=== PATIENT | female | born 1990 | race Caucasian/White ===

== ENCOUNTER 2016-09-30 13:05 | Emergency (ER) | payer SELFPAY ==
[~2016-09-30] VITALS: Ht 152.4 cm; Wt 93.2 kg
[2016-09-30 13:09] VITALS: BP 112/74; PULSE 76; TEMP 98.7
[2016-09-30] MEDS ORDERED: AMOXICILLIN875 MG PO (13:50)
== END 2016-09-30 14:09 | disposition home or self-care (01) ==
LOC: COL.ER 13:05
DX: H66.42 Suppurative otitis media, unspecified, left ear (principal); E03.9 Hypothyroidism, unspecified

== ENCOUNTER 2017-07-29 18:15 | Emergency (ER) | payer SELFPAY ==
[~2017-07-29] VITALS: Ht 152.4 cm; Wt 102.1 kg
[~2017-07-29 18:15] MED LIST: AMOXICILLIN875 MG PO
[2017-07-29 18:24] VITALS: BP 108/61
[2017-07-29 19:03] VITALS: TEMP 97
[2017-07-29] MEDS ORDERED: POLYMYXIN B/TRIMETH OU (19:19)
[2017-07-29 19:47] VITALS: PULSE 96
== END 2017-07-29 19:48 | disposition home or self-care (01) ==
LOC: COL.ER 18:15
DX: H10.9 Unspecified conjunctivitis (principal); E03.9 Hypothyroidism, unspecified; F17.210 Nicotine dependence, cigarettes, uncomplicated

== ENCOUNTER 2017-12-15 23:30 | Emergency (ER) | payer SELFPAY ==
[~2017-12-15] VITALS: Ht 152.4 cm; Wt 92.1 kg
[~2017-12-15 23:30] MED LIST changes: +POLYMYXIN B/TRIMETH OU
[2017-12-15 23:39] VITALS: BP 126/85; TEMP 98.4
[2017-12-16 00:35] LABS: HEMATOCRIT 37.3 % (37.0-47.0); MEAN CELL VOLUME 103 fl (80.0-100.0); MEAN CORPUSCULAR HEMOGLOBIN 33 pg (27.0-31.0); MEAN CORPUSCULAR HGB CONC 32 g/dl (33.0-37.0); MEAN PLATELET VOLUME 11.8 fl (7.4-10.4); PLATELET COUNT 203 K/mm3 (130-400); RED BLOOD COUNT 3.63 M/mm3 (4.10-5.30); REDCELL DISTRIBUTION WIDTH-CV 16.3 % (11.5-14.5)
[2017-12-16 00:36] LABS: COLLECTION METHOD CLEAN CATCH
[2017-12-16 00:48] LABS: MUCOUS Present /lpf; PH 6 (5-8); URINE APPEARANCE Hazy; URINE BACTERIA Rare /hpf; URINE BILIRUBIN Negative (NEGATIVE); URINE BLOOD Negative (NEGATIVE); URINE COLOR Yellow; URINE GLUCOSE Negative (NEGATIVE); URINE KETONE Negative (NEGATIVE); URINE LEUKOCYTE ESTERASE Negative (NEGATIVE); URINE NITRATE Negative (NEGATIVE); URINE PROTEIN(semi-quant) Negative (NEGATIVE); URINE RBC 0-2 /hpf
[2017-12-16 00:54] LABS: ALANINE AMINOTRANSFERASE 30 U/L (9-52); ALBUMIN 4.5 gm/dL (3.5-5.0); ALKALINE PHOSPHATASE 36 U/L (50-136); ANION GAP 11 mmol/L (7-16); AST,SGOT 31 U/L (15-37); BLOOD UREA NITROGEN 23 mg/dL (7-17); CALCIUM 9.3 mg/dL (8.4-10.2); CARBON DIOXIDE 31 mmol/L (22-30); CHLORIDE 96 mmol/L (98-107); CREATININE, serum 1.26 mg/dL (0.52-1.25); GLUCOSE 87 mg/dL (74-106); POTASSIUM 3.9 mmol/L (3.4-5.0); SODIUM 138 mmol/L (137-145); TOTAL PROTEIN 8.1 gm/dL (6.4-8.2)
[2017-12-16 01:47] LABS: ANISOCYTOSIS 1+; BAND 6 % (0-10); BASOPHIL 1 % (0-2); EOSINOPHIL 7 % (0-4); HYPOCHROMIA 1+; LYMPHOCYTE 22 % (20.0-51.0); NEUTROPHILS 58 % (42.0-75.2)
[2017-12-16 01:48] LABS: POLYCHROMASIA 1+
[2017-12-16] MEDS ORDERED: LEVOXYL0.15 MG PO (03:14)
[2017-12-16 03:32] VITALS: PULSE 74
[2017-12-16 08:11] LABS: PATHOLOGY DIFF REVIEW OK
== END 2017-12-16 03:32 | disposition home or self-care (01) ==
LOC: COL.ER 23:30
PROVIDERS: Emergency Medicine
DX: K59.00 Constipation, unspecified (principal); E03.9 Hypothyroidism, unspecified; Z98.890 Other specified postprocedural states

== ENCOUNTER 2018-06-23 12:46 | Emergency (ER) | payer SELFPAY ==
[~2018-06-23] VITALS: Ht 152.4 cm; Wt 81.8 kg
[~2018-06-23 12:46] MED LIST changes: +LEVOXYL0.15 MG PO
[2018-06-23 12:57] VITALS: TEMP 98.4
[2018-06-23 13:45] LABS: COLLECTION METHOD CLEAN CATCH
[2018-06-23 14:05] LABS: MUCOUS Present /lpf; PH 6 (5-8); URINE APPEARANCE Hazy; URINE BACTERIA Rare /hpf; URINE BILIRUBIN Negative (NEGATIVE); URINE BLOOD Negative (NEGATIVE); URINE COLOR Yellow; URINE GLUCOSE Negative (NEGATIVE); URINE KETONE Negative (NEGATIVE); URINE LEUKOCYTE ESTERASE Negative (NEGATIVE); URINE NITRATE Negative (NEGATIVE); URINE PROTEIN(semi-quant) Negative (NEGATIVE); URINE RBC 0-2 /hpf
[2018-06-23 14:14] LABS: BASO % 0.5 % (0.0-2.0); EOS # 0.3 (0.0-0.7); EOS % 3.7 % (0-4.0); GRAN # 5.8 (1.4-6.5); GRAN % 67.8 % (42.2-75.2); HEMATOCRIT 37.2 % (37.0-47.0); LYMPH # 1.9 (1.2-3.4); LYMPH % 22.4 % (20.0-51.0); MEAN CELL VOLUME 99 fl (80.0-100.0); MEAN CORPUSCULAR HEMOGLOBIN 32 pg (27.0-31.0); MEAN CORPUSCULAR HGB CONC 32 g/dl (33.0-37.0); MEAN PLATELET VOLUME 11.5 fl (7.4-10.4); MONO # 0.4 (0.1-0.6); MONO % 5.2 % (1.7-9.3); PLATELET COUNT 204 K/mm3 (130-400); RED BLOOD COUNT 3.75 M/mm3 (4.10-5.30); REDCELL DISTRIBUTION WIDTH-CV 17.3 % (11.5-14.5)
[2018-06-23 14:21] LABS: ALANINE AMINOTRANSFERASE 19 U/L (9-52); ALBUMIN 3.9 gm/dL (3.5-5.0); ALKALINE PHOSPHATASE 43 U/L (50-136); ANION GAP 6 mmol/L (7-16); AST,SGOT 33 U/L (15-37); BILIRUBIN,TOTAL 0.4 mg/dL (0.0-1.0); BLOOD UREA NITROGEN 19 mg/dL (7-17); CALCIUM 9.2 mg/dL (8.4-10.2); CARBON DIOXIDE 33 mmol/L (22-30); CHLORIDE 100 mmol/L (98-107); CREATININE, serum 1.05 mg/dL (0.52-1.25); GLUCOSE 69 mg/dL (74-106); LIPASE 201 U/L (23-300); POTASSIUM 3.8 mmol/L (3.4-5.0); SODIUM 139 mmol/L (137-145)
[2018-06-23 14:23] LABS: C-REACTIVE PROTEIN 0.5 mg/dL (0.0-0.9)
[2018-06-23] MEDS ORDERED: SYNTHROID 0.10.15 MG PO (15:14)
[2018-06-23 15:40] VITALS: BP 110/72; PULSE 68
== END 2018-06-23 15:41 | disposition home or self-care (01) ==
LOC: COL.ER 12:46
PROVIDERS: Emergency Medicine
DX: K59.00 Constipation, unspecified (principal); E03.9 Hypothyroidism, unspecified; F17.210 Nicotine dependence, cigarettes, uncomplicated; Z98.890 Other specified postprocedural states
CPT/HCPCS: J2405; J7030

== ENCOUNTER 2019-09-12 19:19 | Emergency (ER) | payer MEDICAID ==
[~2019-09-12] VITALS: Ht 152.4 cm; Wt 95.5 kg
[~2019-09-12 19:19] MED LIST changes: +CIPRODEX OT; +SYNTHROID 0.10.15 MG PO
[2019-09-12 19:25] VITALS: TEMP 99.1
[2019-09-12] MEDS ORDERED: SUDAFED30 MG PO ×2 (19:38→19:41)
[2019-09-12] MEDS ORDERED: FLONASE NASAL S16 GM NS (19:40)
[2019-09-12 19:45] VITALS: BP 130/80; PULSE 78
== END 2019-09-12 19:45 | disposition home or self-care (01) ==
LOC: COL.ER 19:19
DX: H69.93 Unspecified Eustachian tube disorder, bilateral (principal); F17.210 Nicotine dependence, cigarettes, uncomplicated; E03.9 Hypothyroidism, unspecified; Z79.899 Other long term (current) drug therapy

== ENCOUNTER 2020-11-01 18:12 | Emergency (ER) | payer MEDICAID ==
[~2020-11-01 18:12] MED LIST changes: +FLONASE NASAL S16 GM NS; +SUDAFED30 MG PO
== END 2020-11-01 19:44 | disposition left against medical advice (07) ==
LOC: COL.ER 18:12
DX: R52 Pain, unspecified (principal)

== ENCOUNTER 2020-11-03 09:13 | Emergency (ER) | payer MEDICAID ==
[~2020-11-03] VITALS: Ht 152.4 cm; Wt 113.6 kg
[2020-11-03 09:26] VITALS: TEMP 98.9
[2020-11-03 10:01] LABS: BASO % 0.2 % (0.0-2.0); GRAN # 7.8 (1.4-6.5); GRAN % 86.8 % (42.2-75.2); HEMATOCRIT 40.6 % (37.0-47.0); LYMPH # 0.9 (1.2-3.4); LYMPH % 9.6 % (20.0-51.0); MEAN CELL VOLUME 96 fl (80.0-100.0); MEAN CORPUSCULAR HEMOGLOBIN 31 pg (27.0-31.0); MEAN CORPUSCULAR HGB CONC 32 g/dl (33.0-37.0); MEAN PLATELET VOLUME 10.8 fl (7.4-10.4); MONO # 0.2 (0.1-0.6); MONO % 2.7 % (1.7-9.3); PLATELET COUNT 181 K/mm3 (130-400); RED BLOOD COUNT 4.25 M/mm3 (4.10-5.30); REDCELL DISTRIBUTION WIDTH-CV 20.7 % (11.5-14.5)
[2020-11-03 10:05] LABS: ALBUMIN 4.3 gm/dL (3.5-5.0); BILIRUBIN,TOTAL 0.9 mg/dL (0.0-1.0); CALCIUM 8.3 mg/dL (8.4-10.2); CREATININE, serum 1.29 (0.52-1.25); POTASSIUM 3.8 mmol/L (3.4-5.0); TOTAL PROTEIN 7.9 gm/dL (6.4-8.2)
[2020-11-03 11:58] LABS: ARTERIAL BLD GAS O2 SATURATION 88.5 % (92-100); ARTERIAL BLD GAS TCO2 CT 31.5; ARTERIAL BLOOD GAS BASE EXCESS 4.2 (-2-2); ARTERIAL BLOOD GAS PCO2 49.8 mmHg (35-45); ARTERIAL BLOOD GAS PO2 56.1 mmHg (80-100)
[2020-11-03 16:45] VITALS: BP 100/67; PULSE 85
== END 2020-11-03 16:45 | disposition short-term general hospital (02) ==
LOC: COL.ER 09:13
PROVIDERS: Personal Emergency Response Attendant
DX: U07.1 COVID-19 (principal); F17.290 Nicotine dependence, other tobacco product, uncomplicated
CPT/HCPCS: J0456; J0696; J1885; J2930; J7030; J7050